=== PATIENT | female | born 1975 | race Two or more races ===

== ENCOUNTER 2019-04-26 09:26 | Emergency (ER) | payer OTHER ==
[2019-04-26 09:32] VITALS: BP 106/70; PULSE 60; TEMP 97.9; BMI 23.8
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
--- NOTE | 2019-04-26 14:56 | EKG ---
Test Reason : Blood Pressure : / mmHG Vent. Rate : 064 BPM Atrial Rate : 064 BPM P-R Int : 166 ms QRS Dur : 074 ms QT Int : 386 ms P-R-T Axes : 071 069 054 degrees QTc Int : 398 ms NORMAL SINUS RHYTHM WITH SINUS ARRHYTHMIA LOW VOLTAGE QRS BORDERLINE ECG NO PREVIOUS ECGS AVAILABLE Confirmed by LEANDRA CHOWDHURY MD ([id number]) on 04/26/2019 2:56:03 PM Referred By: Confirmed By:LEANDRA CHOWDHURY MD
== END 2019-04-26 10:38 | disposition home or self-care (01) ==
LOC: JERFT 09:26
DX: R07.9 Chest pain, unspecified (principal); M54.2 Cervicalgia; V43.52XA Car driver injured in collision with other type car in traffic accident, initial encounter; Y93.89 Activity, other specified; Y92.410 Unspecified street and highway as the place of occurrence of the external cause
CPT/HCPCS: 93005; 93010; 99281-25